=== PATIENT | female | born 1980 | race Caucasian/White ===

== ENCOUNTER 2018-12-06 09:35 | Emergency (ER) | payer MEDICAID, OTHER ==
[~2018-12-06] VITALS: Ht 162.6 cm; Wt 56.7 kg
[~2018-12-06 09:35] MED LIST: NORCO 5-325 TA1 EACH ORAL
[2018-12-06] MEDS ORDERED: NKM (09:40)
[2018-12-06 09:46] VITALS: BP 107/73
--- NOTE | 2018-12-06 09:49 | NUR ---
ED Nurse Note: pt present at ER c/o posterial upper back chronic pain 04/03. 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 pt calm and cooperative.
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
[2018-12-06] MEDS ORDERED: Tylenol #3 tab (300mg/30mg) ORAL ONE (10:15)
--- NOTE | 2018-12-06 10:50 | NUR ---
ED Nurse Note: pt went down to x-ray in stable condition.
--- NOTE | 2018-12-06 11:11 | NUR ---
ED Nurse Note: pt came back from x-ray in stable condition.
--- NOTE | 2018-12-06 11:20 | Diagnostic Imaging Report ---
Indications: Upper back pain for 2 weeks Technique: Two views of the thoracic spine Comparison: None Findings: There is suggestion of slight superior endplate compression fracture deformities of the T8, T9, and T11 vertebral bodies. The AP view also suggests a possible similar deformity of the T6 superior endplate, although this is not confirmed on the lateral view. The vertebral body heights are otherwise preserved. The pedicles are intact. There is minimal upper cervical spine apparent rotoscoliotic deformity which is probably just an artifact of positioning. The pedicles are intact. No gross paraspinous mass Impression: Possible superior endplate compression fracture deformities of T8, T9, T11, more questionably T6. Consider MRI to better characterize if clinically indicated Findings discussed by phone with Dr. Hill in the emergency room at the time of interpretation
[2018-12-06] MEDS ORDERED: ACETAMINOPHEN-1 EAC1 ORAL (11:39)
[2018-12-06] MEDS ORDERED: IBUPROFEN600 MG ORAL (11:39)
[2018-12-06 12:00] VITALS: BP 136/85
--- NOTE | 2018-12-06 12:00 | NUR ---
ER DISCHARGE NOTE: Patient is cleared to be discharged per ERMD, pt is aox4, on room air, with stable vital signs. pt was given dc and prescription instructions, pt was able to verbalize understanding, pt id band removed. pt is able to ambulate with steady gait. pt took all belongings.
== END 2018-12-06 12:00 | disposition home or self-care (01) ==
LOC: EMR 09:55
DX: S22.000A Wedge compression fracture of unspecified thoracic vertebra, initial encounter for closed fracture (principal); X58.XXXA Exposure to other specified factors, initial encounter; Y92.9 Unspecified place or not applicable
CPT/HCPCS: 72070; 81025; 99283

== ENCOUNTER 2018-12-27 10:42 | Emergency (ER) | payer OTHER ==
[~2018-12-27] VITALS: Ht 162.6 cm; Wt 54.4 kg
[~2018-12-27 10:42] MED LIST changes: +ACETAMINOPHEN-1 EAC1 ORAL; +IBUPROFEN600 MG ORAL; +NKM
--- NOTE | 2018-12-27 10:45 | NUR ---
ED Nurse Note: pt not found in ER waiting area.
--- NOTE | 2018-12-27 11:00 | NUR ---
ED Nurse Note: Pt walked in ED c/o foreign object in right ear, pt states she has q-tip in her right ear, denies pain nor discharge, no objects seen exterior, ERMD at the bedside.
--- NOTE | 2018-12-27 11:11 | NUR ---
ED Nurse Note: technology solutions architect at the bedside for ear irrigation per ERMD order.
[2018-12-27 11:13] VITALS: BP 106/66
--- NOTE | 2018-12-27 11:14 | Emergency Room Report ---
History of Present Illness General Chief Complaint: Earache Source: Patient Present Illness HPI The patient states that she is concerned there is cotton stuck in her right ear. She states she was cleaning her ear with a Q-tip and noted that the cotton was gone. She states she thinks that it is in her right ear. She did try using tweezers but didn't want to go in to far. She denies pain. She has no other complaints. Allergies: Coded Allergies: No Known Allergies (Unverified , 07/29/14) Patient History Past Medical History: none Social History: Denies: smoking, alcohol use, drug use Last Menstrual Period: 12/20/18 Reviewed Nursing Documentation: PMH: Agreed; PSxH: Agreed Nursing Documentation-PMH Past Medical History: No Stated History Review of Systems All Other Systems: negative except mentioned in HPI Physical Exam Vital Signs Date Time Temp Pulse Resp B/P (MAP) Pulse Ox O2 Delivery O2 Flow Rate FiO2 12/27/18 10:50 97.9 83 18 106/66 99 Room Air Sp02 EP Interpretation: reviewed, normal General Appearance: no apparent distress, alert, GCS 15, non-toxic Head: normocephalic, atraumatic Eyes: bilateral eye normal inspection, bilateral eye PERRL ENT: hearing grossly normal, normal pharynx, no angioedema, normal voice, TMs + canals normal Neck: normal inspection, full range of motion Respiratory: no respiratory distress, no retraction, no accessory muscle use, speaking full sentences Rectal: deferred Musculoskeletal: back normal, gait/station normal Neurologic: alert, oriented x3, responsive, motor strength/tone normal, sensory intact, speech normal Psychiatric: judgement/insight normal, memory normal, mood/affect normal, no suicidal/homicidal ideation Skin: normal color, no rash, warm/dry, well hydrated Medical Decision Making Diagnostic Impression: Primary Impression: Ear canal abrasion Additional Impressions: Examination Concern for foreign body in R. Ear canal ER Course The patient was concerned for called and left in the right ear canal. I did not identify any cotton in the ear canal. There was a tiny abrasion at the posterior aspect just at the entrance to the ear canal that was likely secondary to trying to remove any cotton. There was no bleeding or significant injury. The patient was reassured. The ear was also irrigated as a precaution. At this time, I did not identify a foreign body or an emergency medical condition. The patient is given close return precautions and follow up instructions. Last Vital Signs Date Time Temp Pulse Resp B/P (MAP) Pulse Ox O2 Delivery O2 Flow Rate FiO2 12/27/18 10:50 97.9 83 18 106/66 99 Room Air Status: improved Disposition: HOME, SELF-CARE Condition: Improved Referrals: Gildardo FRANCISREFERRING (PCP) Leilani Mc DO Dec 27, 2018 11:14
--- NOTE | 2018-12-27 11:21 | NUR ---
ED Nurse Note: pt cleared tob e d/c per ERMD, pt d/c and aftercare instruction provided, pt verbalized understanding and agrees with plan, vss, ambulatory w/ steady gait, left w/ all belongings.
[2018-12-27 11:22] VITALS: BP 111/60
== END 2018-12-27 11:23 | disposition home or self-care (01) ==
LOC: EMR 11:05
DX: S00.411A Abrasion of right ear, initial encounter (principal); X58.XXXA Exposure to other specified factors, initial encounter; Y92.9 Unspecified place or not applicable
CPT/HCPCS: 99282

== ENCOUNTER 2019-08-12 11:05 | Emergency (ER) | payer OTHER ==
[~2019-08-12] VITALS: Ht 162.6 cm; Wt 56.2 kg
[2019-08-12 11:16] VITALS: BP 113/75
--- NOTE | 2019-08-12 11:18 | NUR ---
ED Nurse Note: Patient walked in to ER from home due to dizziness, difficulty to clear throat since Monday. Patient alert and oriented x4 and ambulatory. Calm and cooperative. Skin clean and intact. No cardiac or acute distress noted at this time. no coughing at this moment.
[2019-08-12 11:48] LABS: APPEARANCE,URINE CLEAR; BILIRUBIN, URINE NEGATIVE (NEGATIVE); GLUCOSE, URINE (UA) NEGATIVE (NEGATIVE); KETONES,URINE NEGATIVE (NEGATIVE); LEUKOCYTE ESTERASE ,URINE 1+ (NEGATIVE); NITRITE,URINE NEGATIVE (NEGATIVE); PH,URINE 5 (4.5-8.0); PROTEIN,URINE NEGATIVE (NEGATIVE); UROBILINOGEN,URINE NORMAL MG/DL (0.0-1.0)
[2019-08-12 11:49] LABS: BASOPHILS % (AUTO) 1.1 % (0.0-2.0); EOSINOPHILS % (AUTO) 0.7 % (0.0-3.0); HEMATOCRIT 38.3 % (37.0-47.0); HEMOGLOBIN 12.8 G/DL (12.0-16.0); LYMPHOCYTES % (AUTO) 35.2 % (20.0-45.0); MEAN CORPUSCULAR VOLUME 88 FL (80-99); MONOCYTES % (AUTO) 6.2 % (1.0-10.0); NEUTROPHILS % (AUTO) 56.8 % (45.0-75.0); PLATELET COUNT 216 K/UL (150-450); RED BLOOD COUNT 4.33 M/UL (4.20-5.40); RED CELL DISTRIBUTION WIDTH 10.9 % (11.6-14.8); WHITE BLOOD COUNT 5.3 K/UL (4.8-10.8)
[2019-08-12 11:51] LABS: COLOR,URINE YELLOW
[2019-08-12 11:57] LABS: ANION GAP 9 mmol/L (5-15); BLOOD UREA NITROGEN 10 mg/dL (7-18); CALCIUM 8.5 MG/DL (8.5-10.1); CARBON DIOXIDE 27 MMOL/L (21-32); CHLORIDE 105 MMOL/L (98-107); CREATININE 0.8 MG/DL (0.55-1.30); POTASSIUM 4.2 MMOL/L (3.5-5.1); SODIUM 141 MMOL/L (136-145)
[2019-08-12 12:07] LABS: ALANINE AMINOTRANSFERASE 27 U/L (12-78); ALBUMIN 3.7 G/DL (3.4-5.0); ALBUMIN/GLOBULIN RATIO 1.1 (1.0-2.7); ALKALINE PHOSPHATASE 37 U/L (46-116); ASPARTATE AMINO TRANSFERASE 21 U/L (15-37); BILIRUBIN,TOTAL 0.7 MG/DL (0.2-1.0)
--- NOTE | 2019-08-12 12:43 | NUR ---
ED Nurse Note: ERMD at bedside.
[2019-08-12 12:53] VITALS: BP 128/86
--- NOTE | 2019-08-12 12:55 | NUR ---
ED Nurse Note: Pt cleared by health care Provider for discharge. DC instructions was given and explained to pt and verbalized understanding of teachings. All medical deviecs such as ID band removed. Pt is AAO x4, ambulatory and left with all personal belongings.
--- NOTE | 2019-08-12 14:43 | Emergency Room Report ---
History of Present Illness General Chief Complaint: General Complaint Source: Patient Present Illness Allergies: Coded Allergies: No Known Allergies (Unverified , 07/29/14) Patient History Last Menstrual Period: 08/05/19 Now: No Nursing Documentation-[facility] Past Medical History: No Stated History Physical Exam Vital Signs Date Time Temp Pulse Resp B/P (MAP) Pulse Ox O2 Delivery O2 Flow Rate FiO2 08/12/19 11:07 98.2 70 16 113/75 (88) 99 Room Air Medical Decision Making Diagnostic Impression: Primary Impression: Upper respiratory infection Additional Impression: Generalized weakness Last Vital Signs Date Time Temp Pulse Resp B/P (MAP) Pulse Ox O2 Delivery O2 Flow Rate FiO2 08/12/19 12:53 98.1 77 16 128/86 99 Room Air Disposition: HOME, SELF-CARE Condition: Stable Departure Forms: Return to Work Return to Work Date: Aug 14, 2019 Work Restrictions: None Patient Instructions: Upper Respiratory Infection, Adult, [id number] Arron Hill MD Aug 12, 2019 14:43
== END 2019-08-12 12:55 | disposition home or self-care (01) ==
LOC: EMR 12:00
DX: J06.9 Acute upper respiratory infection, unspecified (principal); R53.1 Weakness
CPT/HCPCS: 36415; 80053; 81003; 81025; 85025; 96360; Z7502; 99284